=== PATIENT | female | born 1945 | race African-American/Black ===

== ENCOUNTER 2016-08-14 17:28 | Outpatient (CLI) | payer MEDICARE, MEDICAID ==
[2016-08-14 18:42] LABS: #Basophils 0.1 thou/uL (0.0-0.2); #Eosinphils 0.3 thou/uL (0.0-0.7); #Lymphocytes 3.8 thou/uL (1.20-3.40); #Monocytes 0.7 thou/uL (0.11-0.59); #Neutrophils 3.3 thou/uL (1.40-6.50); %Basophils 1.6 % (0.0-1.0); %Eosinophils 3.1 % (0.0-10.0); %Neutrophils 40.2 % (42.0-75.0); Hemoglobin 13.4 g/dL (12.0-16.0); Mean Corpuscular HGB CONC 31.6 g/dL (32.0-36.0); Mean Corpuscular Hemoglobin 26.2 pg (27.0-31.0); Mean Corpuscular Volume 82.8 fl (81.0-99.0); Mean Platelet Volume 9.3 fL (7.4-10.4); Platelet Count 218 thou/uL (130-400); RBC Distribution Width 14.7 % (11.5-14.5); Red Blood Cell (RBC) Count 5.11 mill/uL (4.20-5.40); White Blood Cell (WBC) Count 8.1 thou/uL (4.8-10.8)
[2016-08-14 18:51] LABS: ALT (SGPT) 10 U/L (0-55); AST (SGOT) 18 U/L (5-34); Albumin 3.7 g/dL (3.4-4.8); Alkaline Phosphatase 60 U/L (40-150); Anion Gap 15 mmol/L (10-20); BUN (Urea Nitrogen) 12 mg/dL (9.8-20.1); Bilirubin, Total 0.4 mg/dL (0.2-1.2); Calc. Creatinine Clearance 0 mL/min (70-130); Calcium 9.2 mg/dL (7.8-10.44); Carbon Dioxide 25 mmol/L (23-31); Cardiac Risk 4.4 (Less than 4.5); Chloride 104 mmol/L (98-107); Cholesterol 245 mg/dL (< 200 Desired); Estimated GFR-MDRD 85; Globulin 3.4 g/dL (2.4-3.5); Glucose 91 mg/dL (80-115); HDL Cholesterol 56 mg/dL (>60 Neg Risk); LDL Cholesterol, Calculated 171 mg/dL; Potassium 3.5 mmol/L (3.5-5.1); Protein, Total 7.1 g/dL (5.8-8.1); Sodium 140 mmol/L (136-145); Triglycerides 90 mg/dL (Less than 150)
== END 2016-08-14 17:29 | disposition home or self-care (01) ==
LOC: MADLAB 17:28
PROVIDERS: ATTEND Psychiatry & Neurology Psychiatry
DX: F20.0 Paranoid schizophrenia (principal); Z79.899 Other long term (current) drug therapy
CPT/HCPCS: 36415; 80053; 80061; 84443; 85025

== ENCOUNTER 2016-08-21 14:03 | Outpatient (CLI) | payer MEDICARE, MEDICAID ==
[2016-08-21 14:12] LABS: Bilirubin Negative (Negative); Blood, Urine Trace (Negative); Clarity Slightly Cloudy (Clear); Glucose, Urine (Dipstick) Negative (Negative); Leukocyte Negative (Negative); Nitrite Negative (Negative); Protein, Urine (Dipstick) Negative (Neg-Trace); Specific Gravity, Urine 1.015 (1.005-1.030); Urobilinogen 0.2 mg/dL (0.2-1.0); pH, Urine 6.5 (5.0-9.0)
[2016-08-21 14:14] LABS: Bacteria/HPF Rare-Few HPF (None Seen); RBC/HPF 0-3 HPF (0-3); WBC/HPF 0-3 HPF (0-3)
[2016-08-21 14:27] LABS: Amphetamine Not Detected (NotDetected); Barbiturates Screen Not Detected (NotDetected); Benzodiazepine Screen Not Detected (NotDetected); Cocaine Metabolite Screen Not Detected (NotDetected); Medtox Control Line Valid? VALID (VALID); Methadone Not Detected (NotDetected); Methamphetamine Not Detected (NotDetected); Opiate Screen Not Detected (NotDetected); Oxycodone Screen Not Detected (NotDetected); Phencyclidine (PCP) Not Detected (NotDetected); THC/Cannabinoid Screen Not Detected (NotDetected); Tricyclic Screen Not Detected (NotDetected)
== END 2016-08-21 14:04 | disposition home or self-care (01) ==
LOC: MADLAB 14:03
PROVIDERS: ATTEND Psychiatry & Neurology Psychiatry
DX: F20.0 Paranoid schizophrenia (principal); Z79.899 Other long term (current) drug therapy
CPT/HCPCS: 80306; 81003; 81015

== ENCOUNTER 2017-01-20 10:39 | Outpatient (CLI) | payer MEDICARE, MEDICAID ==
[2017-01-20 12:16] LABS: ALT (SGPT) 11 U/L (8-55); AST (SGOT) 16 U/L (5-34); Albumin 3.7 g/dL (3.4-4.8); Alkaline Phosphatase 57 U/L (40-150); Anion Gap 14 mmol/L (10-20); BUN (Urea Nitrogen) 18 mg/dL (9.8-20.1); Bilirubin, Total 0.4 mg/dL (0.2-1.2); Calc. Creatinine Clearance 0 mL/min (70-130); Calcium 9.6 mg/dL (7.8-10.44); Carbon Dioxide 25 mmol/L (23-31); Chloride 107 mmol/L (98-107); Estimated GFR-MDRD 60; Globulin 3.7 g/dL (2.4-3.5); Glucose 102 mg/dL (80-115); Potassium 3.5 mmol/L (3.5-5.1); Protein, Total 7.4 g/dL (6.0-8.3); Sodium 142 mmol/L (136-145)
[2017-01-20 12:36] LABS: Hemoglobin A1c 5.5 % (4.0-6.0)
--- NOTE | 2017-01-20 16:13 | RAD ---
CHEST TWO VIEWS HISTORY: Chronic cough. COMPARISON: None. FINDINGS: Normal cardiac silhouette. Pulmonary vessels and hilum are normal. No masses. No consolidation. No pneumothorax or osseous abnormalities. IMPRESSION: No acute cardiopulmonary process. POS: [facility]
== END 2017-01-20 10:40 | disposition home or self-care (01) ==
LOC: MADLABBHPM 10:39
PROVIDERS: ATTEND Family Medicine
DX: R05 Cough (principal); Z86.39 Personal history of other endocrine, nutritional and metabolic disease
CPT/HCPCS: 36415; 71020; 80053; 83036

== ENCOUNTER 2017-08-03 14:51 | Outpatient (CLI) | payer MEDICARE, MEDICAID ==
--- NOTE | 2017-08-03 16:43 | RAD ---
PA AND LATERAL CHEST RADIOGRAPH: Date: 08-03-17 History: Shortness of breath, acute asthmatic bronchitis. Comparison: 01-20-17 FINDINGS: Cardiac silhouette and pulmonary vasculature are within normal limits. The lungs remain clear. There has been no interval change when compared to the prior exam. IMPRESSION: No acute cardiopulmonary process. POS: [facility]
== END 2017-08-03 14:52 | disposition home or self-care (01) ==
LOC: MADRAD 14:51
PROVIDERS: ATTEND Family Medicine
DX: J45.901 Unspecified asthma with (acute) exacerbation (principal)
CPT/HCPCS: 71046

== ENCOUNTER 2017-11-18 13:12 | Outpatient (CLI) | payer MEDICARE, MEDICAID ==
[2017-11-18 14:00] LABS: ALT (SGPT) 8 U/L (8-55); AST (SGOT) 14 U/L (5-34); Albumin 3.6 g/dL (3.4-4.8); Alkaline Phosphatase 49 U/L (40-150); Anion Gap 14 mmol/L (10-20); BUN (Urea Nitrogen) 17 mg/dL (9.8-20.1); Bilirubin, Total 0.4 mg/dL (0.2-1.2); Calc. Creatinine Clearance 0 mL/min (70-130); Calcium 9.2 mg/dL (7.8-10.44); Carbon Dioxide 21 mmol/L (23-31); Cardiac Risk 4.6 (Less than 4.5); Chloride 111 mmol/L (98-107); Cholesterol 229 mg/dl (< 200 Desired); Estimated GFR-MDRD 86; Globulin 3.6 g/dL (2.4-3.5); Glucose 97 mg/dL (83-110); HDL Cholesterol 50 mg/dL (>60 Neg Risk); LDL Cholesterol, Calculated 165 mg/dL; Potassium 3.9 mmol/L (3.5-5.1); Protein, Total 7.2 g/dL (6.0-8.3); Sodium 142 mmol/L (136-145); Triglycerides 71 mg/dL (Less than 150)
== END 2017-11-18 13:13 | disposition home or self-care (01) ==
LOC: MADLABBHPM 13:12
PROVIDERS: ATTEND Family Medicine
DX: E78.2 Mixed hyperlipidemia (principal); F17.220 Nicotine dependence, chewing tobacco, uncomplicated; I10 Essential (primary) hypertension
CPT/HCPCS: 36415; 80053; 80061

== ENCOUNTER 2018-12-16 20:09 | Emergency (ER) | payer MEDICARE, MEDICAID ==
--- NOTE | 2018-12-16 21:20 | RAD ---
Exam: Chest 2 views HISTORY:Cough Comparison: None FINDINGS: Lungs: No masses or consolidation. Cardiac silhouette:Stable Pulmonary vessels: Normal Pleural Spaces: Clear Pneumothorax: None Osseous abnormalities: None of acuity. IMPRESSION: No focal consolidation. Stable chest.
== END 2018-12-16 21:15 | disposition home or self-care (01) ==
LOC: MADERS 20:09
DX: J06.9 Acute upper respiratory infection, unspecified (principal); E78.5 Hyperlipidemia, unspecified; I10 Essential (primary) hypertension; F17.220 Nicotine dependence, chewing tobacco, uncomplicated; Z79.899 Other long term (current) drug therapy
CPT/HCPCS: 71046

== ENCOUNTER 2019-10-09 13:31 | Emergency (ER) | payer MEDICARE, MEDICAID | END 2019-10-09 14:45 | disposition home or self-care (01) | LOC: MADERS 13:31 | DX: J45.909 Unspecified asthma, uncomplicated (principal); E78.5 Hyperlipidemia, unspecified; E78.00 Pure hypercholesterolemia, unspecified; I10 Essential (primary) hypertension; F17.220 Nicotine dependence, chewing tobacco, uncomplicated; Z79.899 Other long term (current) drug therapy | CPT/HCPCS: 99283 ==